=== PATIENT | male | born 1990 | race Two or more races ===

== ENCOUNTER 2021-05-08 19:23 | Emergency (ER) | payer MEDICAID ==
[~2021-05-08] VITALS: Ht 172.7 cm; Wt 77.6 kg
--- NOTE | 2021-05-08 19:31 | NUR ---
BIBCOUSIN THIS 30YO MALE PATIENT, AMBULATORY, WITH CC OF HIGH BP. PT IS ALERT, ORIENTED X4. PT PLACED COMFORTABLY ON ER TABLE.
[2021-05-08 19:44] VITALS: BP 156/113
[2021-05-08] MEDS ORDERED: LISI20TA30 PO (19:44)
--- NOTE | 2021-05-08 19:51 | NUR ---
Patient discharged to home in stable condition. Written and verbal after care instructions given. Patient verbalizes understanding of instruction.
== END 2021-05-08 19:53 | disposition home or self-care (01) ==
LOC: ER 19:23
DX: I10 Essential (primary) hypertension (principal); Z79.899 Other long term (current) drug therapy